=== PATIENT | male | born 1980 | race Two or more races ===

== ENCOUNTER 2022-01-06 12:33 | Inpatient (IN) | payer OTHER ==
[~2022-01-06] VITALS: Ht 167.6 cm; Wt 134.3 kg
--- NOTE | 2022-01-06 13:24 | NUR ---
SE RECIBE PACIENTE ALERTA, ORIENTADO X 3 ESFERAS REFIERE TENER DOLOR ABDOMINAL DESDE KELL , SE ESTIMAN S/V SE UBICA EN AREA DE OBSERVACION.
--- NOTE | 2022-01-06 14:46 | NUR ---
MS CHAN ORIENTA SOBRE TRATAMIENTO A SEGUIR, EL CUAL REFIERE ENTENDER. LA MISMA COLECTA MUESTRAS Y CANALIZA PTE UTILIZANDO MEDIDAS ASEPTICAS. SE ADMINISTRAN MEDICAMENTOS MINDI ORDEN MEDICA. LA MISMA ORIENTA SOBRE CT CON CONTRASTE PO EL CUAL REFIERE ENTENDER. SE HACE ENTREGA DE ENVASE PARA MUESTRA DE UA PEND
--- NOTE | 2022-01-06 15:52 | NUR ---
SE RECIBE PACIENTE ALERTA Y ORIENTADO X 3 RECIBIENDO TX DE IV FLUIDS CON AREA DE VENOPUNCIO PATENTE DAKOTA DE EDEMAS Y ERITEMA, PENDIENTE REALIZACION DE CT ABDOMINAL Y PELVICO A LAS 450PM.
== END 2022-01-09 18:14 | disposition home or self-care (01) | DRG 392 ==
LOC: ER 12:33 → MEDI 21:10
PROVIDERS: ADMIT Internal Medicine; ATTEND Internal Medicine
PROC: BW21YZZ Computerized Tomography (CT Scan) of Abdomen and Pelvis using Other Contrast (ICD-10-PCS; principal; 2022-01-06)
DX: K57.32 Diverticulitis of large intestine without perforation or abscess without bleeding (principal); R10.9 Unspecified abdominal pain